=== PATIENT | female | born 1935 | race Caucasian/White ===

== ENCOUNTER → 2017-08-14 12:30 | Outpatient (CLI) | payer MEDICARE, OTHER, SELFPAY ==
--- NOTE | 2017-08-14 | NVE_ITS ---
Venous Exam IMPRESSIONS 1. There is no evidence of significant Reflux. 2. No evidence of deep or superficial vein thrombosis involving the right lower extremity History: Right lower extremity pain. Right lower extremity pain. Edema of the right leg. Edema of the right leg. Risk factors: Hypertension. Obese. Patient denies trauma. Foot and lower leg began hurting 10 days ago. Right lower extremity venous duplex evaluation. Doppler flow study including spectral analysis, color and dong scale imaging. Location: Vascular laboratory. Patient status: Outpatient. CRITICAL FINDINGS - Reported to: Lauren Cevallos - Read back and verified. - 08/14/17 - 13:00 - RLE negative for DVT or SVT Tables: Venous flow and imaging: + +-------+ + Location Overall Flow properties + +-------+ + Right common femoral Patent Normal phasicity; spontaneous; normal augmentation; compressible + +-------+ + Right saphenofemoral junction Patent Compressible + +-------+ + Right profunda femoral Patent Compressible + +-------+ + Right femoral Patent Normal phasicity; spontaneous; normal augmentation; compressible + +-------+ + Right greater saphenous Patent Normal phasicity; spontaneous; normal augmentation; compressible + +-------+ + Right popliteal Patent Normal phasicity; spontaneous; normal augmentation; compressible + +-------+ + Right posterior tibial Patent Compressible + +-------+ + Right peroneal Patent Compressible + +-------+ + Right gastrocnemius Patent Compressible + +-------+ + Right soleal Patent Compressible + +-------+ + (Report phil ) Electronically signed by: Vitor Jorgensen [id number]
== END ==
PROVIDERS: PCP Emergency Medicine; Visit Provider Nurse Practitioner Family
DX: M79.661 Pain in right lower leg (principal); M79.89 Other specified soft tissue disorders
CPT/HCPCS: 93971

== ENCOUNTER → 2017-10-01 12:04 | Outpatient (CLI) | payer MEDICARE, OTHER, SELFPAY ==
--- NOTE | 2017-10-01 12:07 | XR_ITS ---
EXAM: XR lumbar spine 2-3V HISTORY: Back pain ITS.REASON: pain ORDERING PHYSICIAN: India Lord PATIENT AGE: 82 years COMPARISON: None FINDINGS: There is been prior posterior fusion at L4 and L5 with interpedicular screws and disc spacer device. There is 5 mm anterolisthesis of L4. Multilevel degenerative disc disease is present from T11 to S1 with endplate osteophytes and facet hypertrophic change . There is mild lumbar scoliosis convex left with bridging osteophytes on the right at L2-L3 and L4. Hypertrophic changes are present from the prior fusion. Facet hypertrophic changes are also present at L2 and L3. There may very well be canal stenosis at L2 and L3 as well as L5-S1 No fracture or dislocation. No lytic or blastic change. Incidental vascular calcification noted. IMPRESSION: Multilevel lumbar spondylosis with degenerative disc disease, postsurgical change, then prominent facet arthropathy. Possible canal stenosis which may be better evaluated for with MRI
--- NOTE | 2017-10-01 12:07 | XR_ITS ---
XR wrist LT min 3V HISTORY pain ITS.REASON: pain ORDERING PHYSICIAN: India Lord PATIENT AGE: 82 years Comparison: None FINDINGS: There are severe osteoarthritic changes of the first metacarpal carpal junction. There is mild lateral subluxation of the first metacarpal. Osteoarthritic changes are also present at the scaphotrapezium joint. Cystic changes are present at the base of the scaphoid 7 mm. Mild degenerative changes distal radial ulnar joint. No fracture or dislocation. IMPRESSION: Severe osteoarthritis
== END ==
PROVIDERS: PCP Nurse Practitioner Family; Visit Provider Nurse Practitioner Family
DX: M25.532 Pain in left wrist (principal); M54.9 Dorsalgia, unspecified
CPT/HCPCS: 72100; 73110

== ENCOUNTER 2017-11-14 15:00 | Outpatient (RCR) | payer MEDICARE, OTHER, SELFPAY ==
--- NOTE | 2017-10-15 13:30 | HMH.PTOPEV ---
PT Outpatient Evaluation Rehab PT Outpatient Evaluation Start: 10/15/17 13:17 Freq: Status: Active Protocol: Document 10/15/17 13:17 CRYSTAL (Rec: 10/15/17 13:30 CRYSTAL [id number]) Electronically Signed By Geoff Swann, PT 10/15/17 13:17 Outpatient Therapy Subjective History Subjective History Pt reports acute onset LBP beginning on 09/14/17 after long day of moving/lifting activity. Pt reports R > L sided LBP with intermittent R LE s/s from R glut/hip to lat thigh. Pt reports some R LE weakness as well. PMH: B TKA's , lumbar spine discectomy w/ fusion, OA Chief Complaint Pain Stiff Weakness Symptom Type Ache Throb Sharp Dull Symptoms Relieved By OTC Meds Symptoms Aggravated By Sitting Standing Walking Lifting Prior Functional Limitations None Current Functional Limitations Lifting Housework Standing Sitting Walking Symptom Description Constant but Variable Level of pain today (0-10) 5 Pain scale - at its best (0-10) 5 Pain scale - at its worst (0-10) 8 Lumbopelvic Eval Posture Thoracic Spine Posture Standing Position Neutral Lumbar Spine Posture Standing Position Flattened Assistive device Assistive Devices None / NA Gait Observation General Gait Pattern Observation Antalgic Gait Wide Based Gait Shuffling Step Palapation tenderness right lumbar spinal tenderness Yes: 3/4 paraspinal tenderness Yes: 3/4 buttock tenderness Yes: 3/4 left lumbar spinal tenderness Yes: 1/4 paraspinal tenderness Yes: 1/4 buttock tenderness Yes: 1/4 Lumbar/Sacral Palpation Findings Tenderness Accessory Movement L3 bilateral L4 bilateral L5 bilateral Range of Motion Lumbar Spine Active Flexion Range of 0-100 Motion (degrees) Lumbar Spine Active Extension Range of 0-20 Motion (degrees) Left Lumbar Spine Lateral Flexion Active 0-20 Range of Motion (degrees) Right Alexandra
== END 2017-11-14 15:01 | disposition home or self-care (01) ==
LOC: PT 15:00
PROVIDERS: PCP Nurse Practitioner Family; Visit Provider Nurse Practitioner Family
DX: M54.9 Dorsalgia, unspecified (principal); M25.532 Pain in left wrist
CPT/HCPCS: 97010; 97014; 97035; 97110; 97163; G0283

== ENCOUNTER → 2018-10-22 09:02 | Outpatient (CLI) | payer MEDICARE, OTHER, SELFPAY ==
--- NOTE | 2018-10-22 09:06 | MM_ITS ---
MM Dig screening mamm BI w/CAD CAD Screening COMPARISON: Digital mammograms with CAD 10/25/2016 and 11/22/2014 INDICATION: There is a history of breast cancer in patient's sister diagnosed at age 50. There have been previous biopsies on each breast for benign disease. TECHNIQUE: Standard CC and MLO images were obtained. R2 CAD reviewed. FINDINGS: Prominent heterogenic fibro glandular densities are seen in both breasts. However there has been interval change in the left breast with a suspicious spiculated lesion deep within the breast central location. There is a benign-appearing calcification or possibly a biopsy clip at the periphery of this lesion. However this possible biopsy clip was not seen on the previous mammogram 10/25/2016. Recommend patient return for spot compression magnification views and ultrasound for additional evaluation. There are few benign-appearing microcalcifications in each breast and there is arterial calcification in each breast. IMPRESSION: Dense parenchyma pattern with development of new suspicious asymmetric density deep within the central portion left breast worrisome for carcinoma. However the findings could possibly be secondary to post biopsy scarring if there has been interval biopsy performed at an outside facility since the previous mammogram at [facility]. BI-RADS Category: 0 Need Additional Imaging Evaluation RECOMMENDED FOLLOW-UP: IMM - IMMEDIATE FOLLOW-UP RECOMMENDED (A letter has been sent to the patient regarding results of the study.)
== END ==
PROVIDERS: PCP Nurse Practitioner Family; Visit Provider Nurse Practitioner Family
DX: Z12.31 Encounter for screening mammogram for malignant neoplasm of breast (principal)
CPT/HCPCS: 77067

== ENCOUNTER → 2018-11-12 13:15 | Outpatient (CLI) | payer MEDICARE, OTHER, SELFPAY ==
--- NOTE | 2018-11-12 13:17 | US_ITS ---
MM Dig mamm DX unilat LT CAD, US breast LT complete INDICATION: Follow-up abnormal mammogram ORDERING PHYSICIAN: Lauren Cevallos APRN PATIENT AGE: 83 years COMPARISON: 10/22/2018, 10/25/2016 TECHNIQUE: Problem-solving views of the left breast along with left breast ultrasound FINDINGS: Spot compression views show persistent area of increased density which is ill-defined in the central aspect of the left breast superiorly at the 12:00 region. There is a coarse calcification at this region and smaller microcalcifications noted at this area. This area measures approximately 2 cm with some central architectural distortion. Left breast ultrasound: At 11:00 there is a hypoechoic mass measuring 1.7 x 0.8 cm with irregular stellate appearing margins suspicious for neoplasm. Biopsy is suggested IMPRESSION: Suspicious 2 cm mass at the level o'clock region of the left breast. Ultrasound-guided mammotome biopsy recommended. BI-RADS Category: 4 Suspicious Abnormality-Biopsy Considered RECOMMENDED FOLLOW-UP: BIO - BIOPSY RECOMMENDED (A letter has been sent to the patient regarding results of the study.)
== END ==
PROVIDERS: PCP Nurse Practitioner Family; Visit Provider Nurse Practitioner Family
DX: R92.8 Other abnormal and inconclusive findings on diagnostic imaging of breast (principal)
CPT/HCPCS: 76641; 77065

== ENCOUNTER → 2018-12-04 09:21 | Outpatient (CLI) | payer MEDICARE, OTHER, SELFPAY ==
--- NOTE | 2018-12-04 | MM_ITS ---
US mammotome bx LT, MM clip placement LT, MM surgical specimen LT INDICATION: Left breast nodule/mass, abnormal mammogram, palpable abnormality ORDERING PHYSICIAN: Lauren Cevallos APRN PATIENT AGE: 83 years COMPARISON: 11/12/2018 TECHNIQUE: Following obtaining informed consent and timeout procedure under aseptic conditions and local anesthesia with 1% buffered lidocaine and deeper anesthesia with lidocaine mixed with epinephrine suspicious nodule within the 11:00 region of the left breast was localized with sonographic guidance. Mammotomy needle was inserted and multiple core biopsies were obtained. Specimen radiograph was obtained showing faint calcifications as expected. Nonferromagnetic clip was then placed. The patient tolerated the procedure well without evidence of immediate complications. Postbiopsy mammogram: Postbiopsy changes are present in the upper inner aspect of left breast. A clip is present in this region adjacent to a dense rodlike calcification. 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 No immediate complication. Recommendations: Surgical consult
--- NOTE | 2018-12-04 | MM_ITS ---
US mammotome bx LT, MM clip placement LT, MM surgical specimen LT INDICATION: Left breast nodule/mass, abnormal mammogram, palpable abnormality ORDERING PHYSICIAN: Lauren Cevallos APRN PATIENT AGE: 83 years COMPARISON: 11/12/2018 TECHNIQUE: Following obtaining informed consent and timeout procedure under aseptic conditions and local anesthesia with 1% buffered lidocaine and deeper anesthesia with lidocaine mixed with epinephrine suspicious nodule within the 11:00 region of the left breast was localized with sonographic guidance. Mammotomy needle was inserted and multiple core biopsies were obtained. Specimen radiograph was obtained showing faint calcifications as expected. Nonferromagnetic clip was then placed. The patient tolerated the procedure well without evidence of immediate complications. Postbiopsy mammogram: Postbiopsy changes are present in the upper inner aspect of left breast. A clip is present in this region adjacent to a dense rodlike calcification. Pathology: Invasive ductal carcinoma, ER, [place], and HER-2 positive IMPRESSION: Successful sonographic guided mammotome biopsy of the left breast demonstrated invasive ductal carcinoma. No immediate complication. Recommendations: Surgical consult
--- NOTE | 2018-12-04 09:50 | US_ITS ---
US mammotome bx LT, MM clip placement LT, MM surgical specimen LT INDICATION: Left breast nodule/mass, abnormal mammogram, palpable abnormality ORDERING PHYSICIAN: Lauren Cevallos APRN PATIENT AGE: 83 years COMPARISON: 11/12/2018 TECHNIQUE: Following obtaining informed consent and timeout procedure under aseptic conditions and local anesthesia with 1% buffered lidocaine and deeper anesthesia with lidocaine mixed with epinephrine suspicious nodule within the 11:00 region of the left breast was localized with sonographic guidance. Mammotomy needle was inserted and multiple core biopsies were obtained. Specimen radiograph was obtained showing faint calcifications as expected. Nonferromagnetic clip was then placed. The patient tolerated the procedure well without evidence of immediate complications. Postbiopsy mammogram: Postbiopsy changes are present in the upper inner aspect of left breast. A clip is present in this region adjacent to a dense rodlike calcification. Pathology: Invasive ductal carcinoma, ER, [place], and HER-2 positive IMPRESSION: Successful sonographic guided mammotome biopsy of the left breast demonstrated invasive ductal carcinoma. No immediate complication. Recommendations: Surgical consult
== END ==
PROVIDERS: PCP Nurse Practitioner Family; Visit Provider Nurse Practitioner Family
DX: C50.212 Malignant neoplasm of upper-inner quadrant of left female breast (principal); R92.8 Other abnormal and inconclusive findings on diagnostic imaging of breast; Z17.0 Estrogen receptor positive status [ER+]
CPT/HCPCS: 19083; 76098; 76942; 77065; 88305; 88360; C2618

== ENCOUNTER 2018-12-24 14:00 | Outpatient (RCR) | payer MEDICARE, OTHER, SELFPAY ==
--- NOTE | 2018-12-18 08:53 | HMH.PTOPWND ---
Rehab Outpt Wound Evaluation Rehab OP Wound Evaluation Start: 12/18/18 07:57 Freq: Status: Active Protocol: Document 12/18/18 08:37 INGE (Rec: 12/18/18 08:53 PHORIBRAHIMA [id number]) Electronically Signed By Rad Mora, PT 12/18/18 08:37 Subjective/History History History Pt is 83 yowf who presents for initial Lymphedema evaluation due to recent diagnosis of left breast cancer. She underwent US guided biopsy of the left breast mass discovered via mammogram on and it was found to be malignant. She was apparently informed of the reults at her last appointment with the surgeon on 12/15/18 and refered to our clinic at that time. She reports no c/o pain, numbness, tingling, tenderness to palpation, or edema at this time. She has PMH of B TKA, ARSH, bladder surgery, lumbar surgery. She also reports a prior episode of non-malignant breast biopsy that was performed > 30 yrs ago. She reports she has an appointment with the oncologist on 12/25/18. Subjective Subjective No c/o this date. She does reports she fell on her left side ~ 1 mo ago without any injuries that she knows of. Lymphedema Eval Classification of Lymphedema Secondary Lymphedema Yes Stemmer's sign Stemmer's Sign no Stage of Lymphedema Lymphedema stages Stage 0 (subjective c/o heaviness and aching) Skin Changes Dry Skin Yes Other Changes Yes Pain Scale Pain Scale (0-10) 0 Affected Extremities Areas Affected by Lymphedema/Edema Left Upper Extremity,Left Breast,Left Axilla Manual Lymphatic Drainage Treatment Area MLD Treatment Area Left Upper Extremity,Left Breast,Left Axilla Wound Problems/Impairments Impairments Problems/Impairmments Palpation Tenderness,Impaired Recreational Activities, Increased Edema,Lymphedema Present,Subjective C/O Pain,
== END 2018-12-24 14:05 | disposition home or self-care (01) ==
LOC: PT 14:00
PROVIDERS: PCP Nurse Practitioner Family; Visit Provider Surgery
DX: C50.912 Malignant neoplasm of unspecified site of left female breast (principal)
CPT/HCPCS: 97162

== ENCOUNTER → 2018-12-26 12:20 | Outpatient (CLI) | payer MEDICARE, OTHER, SELFPAY ==
--- NOTE | 2018-12-26 12:32 | CT_ITS ---
PROCEDURE: CT CHEST WO CON CLINICAL INDICATION: BREAST CANCER BREAST CANCER EVALUATION, EVALUATE FOR METASTATIC DISEASE COMPARISON: DIG MAMM-SCREEN JAMAAL from 10/22/2018 DIG MAMM-DX UNI-LT from 11/12/2018 MM clip placement LT from 12/04/2018 DIG MAMM-SCREEN JAMAAL from 12/04/2018 TECHNIQUE: Axial images obtained with sagittal and coronal reformats. All CT scans at the facility use one or more dose reduction, viz: automated exposure control, ma/kV adjustment per patient size (including targeted exams where dose is matched to indication, i.e. head), or iterative reconstruction technique. FINDINGS: THERE ARE CORONARY ARTERY CALCIFICATIONS PRESENT. NORMAL HEART SIZE. MINIMAL PERICARDIAL THICKENING. MODERATE-SIZED HIATAL HERNIA. NO MEDIASTINAL OR HILAR MASS OR ADENOPATHY. SCATTERED AREAS OF PARENCHYMAL SCARRING ARE NOTED. THERE ARE A FEW LESS THAN 5 MM NONSPECIFIC PARENCHYMAL OPACITIES WHICH MAY BE DUE TO AREAS SCARRING. THESE ARE LOCATED IN THE RIGHT UPPER LOBE ANTERIORLY IMAGE NUMBER 24, LEFT UPPER LOBE POSTERIOR LATERALLY IMAGE NUMBER 45, LEFT UPPER LOBE POSTERIOR LATERALLY IMAGE NUMBER 25. NO SUSPICIOUS PULMONARY NODULES ARE EVIDENT. NO EFFUSIONS OR INFILTRATES. LOBULATED SOFT TISSUE MASS IS PRESENT IN THE LEFT BREAST SUPERIORLY CONSISTENT WITH PATIENT'S KNOWN NEOPLASM. THIS MEASURES APPROXIMATELY 2.4 CM. A CLIP IS PRESENT IN THIS REGION. NO ACUTE BONY FINDINGS ARE EVIDENT. UPPER ABDOMINAL IMAGES SHOW A MODERATE-SIZED HIATAL HERNIA. THE ADRENAL GLANDS ARE UNREMARKABLE. IMPRESSION: NO CONVINCING EVIDENCE OF PULMONARY METASTASIS. THERE ARE FEW NONSPECIFIC SMALL PULMONARY NODULAR DENSITIES. RECOMMEND SIX-MONTH FOLLOW-UP TO CONFIRM STABILITY Dictated by: Vitor Jorgensen MD 12/26/2018 16:48 Signed by: <Electronically signed by Vitor Jorgensen MD in [place]> 12/26/2018 16:48
[2018-12-26 12:40] LABS: Blood Urea Nitrogen 21 mg/dL (7-18); Creatinine,Serum 0.94 mg/dL (0.55-1.02); Estimated Glomerular Filt Rate 57 ml/min (>60); GFR (African American) 69 ML/MIN (>60)
== END ==
PROVIDERS: PCP Nurse Practitioner Family; Visit Provider Internal Medicine Medical Oncology
DX: C50.212 Malignant neoplasm of upper-inner quadrant of left female breast (principal)
CPT/HCPCS: 36415; 71250; 82565; 84520

== ENCOUNTER → 2019-01-28 14:28 | Outpatient (CLI) | payer MEDICARE, OTHER, SELFPAY ==
[2019-01-28 15:15] LABS: Basophils % 0.5 % (0.1-2.0); Eosinophils # 0.2 K/mm3 (0.0-0.4); Eosinophils % 2.8 % (0.1-12.0); Lymphocytes # 2.1 K/mm3 (0.7-4.5); Lymphocytes % 26.4 % (10-50); Mean Corpuscular HGB Conc 29.9 g/dL (31.8-35.4); Mean Corpuscular Hemoglobin 28.7 pg (27.0-31.2); Mean Corpuscular Volume 95.9 fl (81-99); Mean Platelet Volume 7.9 fl (7.4-10.4); Monocytes # 0.7 K/mm3 (0.1-1.0); Monocytes % 8.7 % (1.7-9.3); Neutrophils # 4.9 K/mm3 (1.8-7.8); Neutrophils % 61.6 % (37.0-80.0); Platelet Count 321 K/mm3 (142-424); Red Blood Count 4.17 M/mm3 (4.20-5.40); Red Cell Distribution Width 13.7 % (11.5-17.5); White Blood Count 7.9 K/mm3 (4.8-10.8)
[2019-01-28 15:57] LABS: Anion Gap 12.9 mEq/L (5-15); Blood Urea Nitrogen 19 mg/dL (7-18); Calcium 9.1 mg/dL (8.5-10.1); Carbon Dioxide 27 mmol/L (21.0-32.0); Chloride 98 mmol/L (98-107); Creatinine,Serum 0.86 mg/dL (0.55-1.02); Estimated Glomerular Filt Rate 63 ml/min (>60); GFR (African American) 76 ML/MIN (>60); Glucose 120 mg/dL (74-106); Potassium 3.9 mmoL/L (3.5-5.1); Sodium 134 mmol/L (136-145)
== END ==
PROVIDERS: Visit Provider Surgery
DX: E66.9 Obesity, unspecified (principal); C50.912 Malignant neoplasm of unspecified site of left female breast
CPT/HCPCS: 36415; 80048; 85025

== ENCOUNTER 2019-02-04 08:15 | Observation (INO) ==
--- NOTE | 2019-02-04 08:56 | Progress Note ---
[facility] Anesthesia Checklist - Patient Identification Patient Identification: Arm Band, Verbal (Name & ) - Structural Data Admitted From: Home Planned Operative Procedure/s: mastectomy Consent for Planned Operative Procedure(s) Verified: Yes Verified Documents: History and Physical - NPO Status Verified Time NPO: 00:00 - Additional verifications Patient : No Anesthesia Reactions: No Hx Blood Transfusions: No Blood Transfusion Reaction: No Cephalosporin Allergy: No Previous Colonoscopy: No - Cardiovascular Assessment Heart Sounds: S1 & S2 Pulse Strength: Baseline Pulse Rhythm: Regular Peripheral Edema: No - Airway Assessment C-Spine Mobility Assessed: Yes TMJ Mobility Assessed: Yes Dentition: Partials - Neurological Assessment Level of Consciousness: Awake, Alert, Appropriate Hx Seizures: No Numbness or tingling in extremities: No - Anesthesia Plan Anesthesia Risk discussed: Yes Anesthesia Plan: Verified ASA Class: II Anesthesia Type: General [facility] History I have reviewed the patient's past medical history: Yes Medical History: Reports:: Cancer (breast), Hypertension Denies:: Diabetes Mellitus Type 1, Diabetes Mellitus Type 2, Gastroesophageal Reflux Disease(GERD), Internal Pacemaker, MRSA, Pulmonary Embolism, Seizures, Transient Ischemic Attacks (TIA) *Have you ever received a pneumonia vaccine?: No *Have you received a flu vaccine this season?: No Other Medical History: Reports: Hypothyroidism. Denies: Blood Transfusion Reaction Anesthesia experience/problems:: none Laterality Cases: Bilateral: Arthroscopy Knee Other Surgeries: Yes: Cancer Surgery, Colonoscopy, Hysterectomy-Total, Other. No: Pacemaker Amputation: No Fractures: No - *Social History Educational Level: Completed High School Smoking Status: Never smoker Alcohol Intake: never Substance Use Type: denies use *Occupational Status:: retired Housing: apartment Household Members: none *Travel in the last 8 weeks: None Family Hx:: Heart Attack, Cancer, Thyroid Disorder
--- NOTE | 2019-02-04 12:59 | Operative Note ---
Date of procedure: 02/04/19 Pre-op Diagnosis:: Left breast cancer Post-op Diagnosis:: Same Procedure performed:: Left total mastectomy Surgeon:: Dane Jennings MD DECONTAMINATION TECHNICIAN:: Anselmo Lucio Anesthesia: GETA Estimated blood loss (mL): 50 Clinical Note:: Patient is a pleasant 83-year-old female originally referred by Lauren Cevallos and Dr. Lin for newly diagnosed left breast cancer. I saw her in the office initially on 12/15/18. She states that she had been undergoing routine mammograms and had an abnormality noted in the superior aspect of the left b reast. She had additional views including ultrasound and mammogram. She was found to have a 17 x 8 mm lesion which was suspicious and given a BI-RADS 4 classification. 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 She does have a family history of breast cancer in her sister. She underwent evaluation with oncology. She also has been seen by lymphedema clinic. She underwent sentinel lymph node mapping and biopsies last week. Axillary sentinel lymph node x3 and an additional lymph node were all negative. She underwent wide excision of the palpable mass as a partial mastectomy as well. Her final pathology however it reveals positive margins of the invasive cancer in the anterior, posterior, medial, and inferior margins as well as multiple margins with positive DCIS. This gives the overall size of the tumor actually 8 cm as opposed to the original 1.7 x 0.8 cm noted on traditional breast imaging. She is without sig nificant complaints. She does have some minor discomfort in her left upper extremity. I had a very long discussion with the patient regarding potential reexcision versus proceeding with completion total mastectomy. Patient states that she is unsure if she would be able to undergo travel for external beam radiation. Given the multiple positive margins as well as microscopic size of the lesion as well as the multiple positive margins of DCIS I actually would advocate completion mastectomy. I discussed the nature of both procedures as well as the risks and expected outcome. At this point given her clinical scenario and nature of the primary tumor, plan will be to proceed with completion left total mastectomy. Operative findings:: Large seroma cavity from prior partial mastectomy Operative note:: Patient was taken to the operating room. She was given preoperative intravenous antibiotics. In the operating room she was placed in a supine position. General anesthesia was induced. Her left breast and chest area and left upper extremity were prepped and draped in the standard surgical fashion. Skin was marked with a skin marker for planned elliptical incision to perform total mastectomy and reexcised the prior partial mastectomy seroma cavity intact. Incision was made. Attention was first turned to superior skin flaps. Electrocautery was used to dissect in the subcutaneous plane dissecting free the underlying breast tissue from the overlying superficial subcutaneous tissues. In the upper outer quadrant the plane margin was rather close and for full excision there was minor skin defect created upon raising the skin flap. Dissection was carried down to the clavicle and then down to the pectoralis fascia superiorly. Attention was then turned to inferior skin flap. In similar fashion the underlying breast tissue was dissected free from the overlying superficial subcutaneous tissues. This was carried down to the pectoralis muscle dividing the pectoralis fascia with electrocautery. The breast tissue was then excised from the pectoralis muscle excising the pectoral fascia using electrocautery and the subpectoral fascial plane. Dissection was carried out towards the axilla. There was a large amount of extraneous fatty tissues in the axilla. This was excised along with the breast in the entirety. The mastectomy specimen was then marked with sutures marking long suture at the lateral portion and short suture superiorly. There appeared to be some residual tissue in the inferior skin flap and this was dissected free from the overlying skin using electrocautery and sent as additional reexcised inferior tissue. As previously stated there was a very large amount of extraneous fatty tissue towards the axilla. Additional skin and subcutaneous tissue was excised and sent as a specimen to wall taper helper in closure. The wound was then thoroughly irrigated. Hemostasis was achieved with electrocautery. 2 #10 KIRILL drains were placed placing the more medial KIRILL drain in the inferior portion of the mastectomy bed and more lateral KIRILL drain towards the axilla. Both drains were secured with 2-0 nylon sutures. Mastectomy incision was closed with a running 2-0 Vicryl. Skin was closed with skin lara. Clean dry sterile dressing was applied. Condition: stable Disposition: PACU Specimens:: Left mastectomy Additional reexcised inferior tissue Additional lateral tissue Complications:: None immediately apparent
--- NOTE | 2019-02-04 13:04 | Progress Note ---
[facility] Anesthesia Record Part II Discharge Time: 13:30 Destination: [facility] PACU nurse assessment reviewed?: Yes Patient Condition:: Good Anesthesia Complications:: None Swallowing reflex intact?: Yes Cyanosis?: No
--- NOTE | 2019-02-04 13:04 | Progress Note ---
[facility] Anesthesia Record Part I Intake, IV Amount: 1,500 Estimated blood loss (mL): 150 Urine output (mL): 0 Blood Pressure: 118/76 SaO2: 95 Pulse Rate: 82 Respiratory Rate: 12 Temperature: 97.6 F Patient is:: Awake, Stable Stable to PACU at:: 13:00
--- NOTE | 2019-02-04 16:48 | Operative Note ---
Date of procedure: 02/04/19 Pre-op Diagnosis:: Postoperative bleeding Post-op Diagnosis:: Same Procedure performed:: Reopening of recent mastectomy incision with control of postoperative bleeding Surgeon:: Dane Jennings MD TELEPHONE ADVICE NURSE:: Jori Hollis Anesthesia: GUSTAVO Estimated blood loss (mL): 100 Clinical Note:: Patient is an 83-year-old white female who has left breast cancer and underwent left total mastectomy earlier this morning. She was doing well postoperatively and strongly desired going home and being managed as an outpatient. Arrangements are being made for discharge and follow-up. She had developed some bleeding from the incision with some blood in the Dhiraj-Muhammad drains. She was evaluated at the bedside and it was felt that the best plan of action would be reopening of the wound for evacuation of hematoma and for hemostasis. Operative findings:: Patient had a moderate hematoma within the mastectomy bed. There was evidence of some minor oozing from the medial pectoral muscle and a vessel which had minor active bleeding in this region. Operative note:: Consent was obtained and patient was taken emergently to the operating room. She was given additional dose of preoperative antibiotics. In the operating room she was placed in a supine position. General anesthesia was induced. Her previously placed Dhiraj-Muhammad drains were removed. The surgical site was prepped and draped in the standard surgical fashion. Approximately half of the lara were removed medially and the underlying Vicryl suture was sharply divided. There was some hematoma present which was evacuated from the mastectomy bed. There was noted to be some minor oozing from pectoral muscle medially. There was a vessel at this location which showed some active bleeding. Several 2-0 Vicryl [id number] sutures were placed for good hemostasis. Remainder of hematoma was evacuated. Wound was then thoroughly irrigated and aspirated until clear. Thorough exploration was carried out and there was no evidence of any additional bleeding. There appeared to be good hemostasis. A couple of KIRILL drains were placed once again through the previous incisions for the KIRILL drains were. Medial drain was placed inferiorly in the mastectomy bed and the lateral drain was placed towards the axilla. Drains were secured at the skin with 2-0 nylon horizontal mattress suture. Subdermal tissues were closed in the mastectomy incision with a running 2-0 Vicryl suture. Skin was closed with skin lara. Clean dry sterile dressing was applied. Condition: stable Disposition: PACU Complications:: None immediately apparent
--- NOTE | 2019-02-04 17:01 | Progress Note ---
[facility] Anesthesia Record Part II Discharge Time: 17:25 Destination: 2nd floor PACU nurse assessment reviewed?: Yes Patient Condition:: Good Anesthesia Complications:: None Swallowing reflex intact?: Yes Cyanosis?: No
--- NOTE | 2019-02-04 17:01 | Progress Note ---
[facility] Anesthesia Record Part I Intake, IV Amount: 1,000 Estimated blood loss (mL): 100 Urine output (mL): 0 Blood Pressure: 154/71 SaO2: 95 Pulse Rate: 90 Respiratory Rate: 16 Temperature: 97.8 F Patient is:: Drowsy, Stable Stable to PACU at:: 16:55
[2019-02-05 07:06] LABS: Basophils % 0.1 % (0.1-2.0); Eosinophils % 0.1 % (0.1-12.0); Hematocrit 34.3 % (37.0-47.0); Hemoglobin 10.4 g/dL (12.2-16.2); Lymphocytes # 0.9 K/mm3 (0.7-4.5); Lymphocytes % 12.7 % (10-50); Mean Corpuscular HGB Conc 30.4 g/dL (31.8-35.4); Mean Corpuscular Volume 95.9 fl (81-99); Mean Platelet Volume 8.4 fl (7.4-10.4); Monocytes # 0.7 K/mm3 (0.1-1.0); Monocytes % 10.4 % (1.7-9.3); Neutrophils # 5.4 K/mm3 (1.8-7.8); Neutrophils % 76.7 % (37.0-80.0); Platelet Count 303 K/mm3 (142-424); Red Blood Count 3.58 M/mm3 (4.20-5.40); Red Cell Distribution Width 13.6 % (11.5-17.5)
--- NOTE | 2019-02-05 07:43 | Pharmacy Consult Notes ---
[facility] Pharmacy VTE Monitoring - Patient Demographics Admission date: 02/04/19 Report Date: 02/05/19 Time: 07:43 Allergies/Adverse Reactions: Patient Allergies iodine Allergy (Verified 02/04/19 08:27) Height: 1.63 m Weight: 108.125 kg - VTE Risk Labs: VTE Related Lab Results Hgb 10.4 g/dL (12.2-16.2) L 02/05/19 06:08 Hct 34.3 % (37.0-47.0) L 02/05/19 06:08 Plt Count 303 K/mm3 (142-424) 02/05/19 06:08 - Prophylaxis VTE Prophylaxis Ordered?: Yes Types of VTE Prophylaxis: TEDS Knee High Location of Applied Device: Bilateral Lower Extremeties - VTE Diagnosis Confirmed Treatment or plan recommended: Continue Current Treatment
--- NOTE | 2019-02-05 08:15 | Progress Note ---
Subjective Narrative: No complaints. States she is "ready to go home". Exam Vital signs and Labs for Last 24 Hours: Temp Pulse Resp BP Pulse Ox 97.7 F 69 18 121/41 L 94 L 02/05/19 04:00 02/05/19 04:00 02/05/19 04:00 02/05/19 04:00 02/05/19 04:00 Laboratory Results - last 24 hr 02/05/19 06:08: WBC 7.0, RBC 3.58 L, Hgb 10.4 L, Hct 34.3 L, MCV 95.9, MCH 29.2, MCHC 30.4 L, RDW 13.6, Plt Count 303, MPV 8.4, Neut % (Auto) 76.7, Lymph % (Auto) 12.7, [place] % (Auto) 10.4 H, Eos % (Auto) 0.1, Baso % (Auto) 0.1, Neut # (Auto) 5.4, Lymph # (Auto) 0.9, [place] # (Auto) 0.7, Eos # (Auto) 0.0, Baso # (Auto) 0.0 I & O for Last 24 hours: Intake & Output 02/02/19 02/03/19 02/04/19 02/05/19 11:59 11:59 11:59 11:59 Intake Total 3596 / 3596 Output Total 435 / 435 Balance 3161 / 3161 Weight 226 lb 238 lb 6 oz - Routine Chest/Breast/Axilla Exam Comments: Dressings clean. No hematoma. Acceptable KIRILL output. Progress Note: A&P Assessment and Plan for All Diagnoses:: Discharge home.
--- NOTE | 2019-02-05 08:21 | Discharge Summary ---
General - General Admission date:: 02/04/19 Discharge date: 02/05/19 HPI HPI: Patient is a pleasant 83-year-old female originally referred by Lauren Cevallos and Dr. Lin for left breast cancer. I saw her in the office initially on 12/15/18 as a consultation. She states that she had been undergoing routine mammograms and had an abnormality noted in the superior aspect of the left breast. She had additional views including ultrasound and mammogram. She was found to have a 17 x 8 mm lesion which was suspicious and given a BI-RADS 4 classification. 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 She does have a family history of breast cancer in her sister. She underwent evaluation with oncology. She also has been seen by lymphedema clinic. She underwent sentinel lymph node mapping and biopsies. Axillary sentinel lymph node x3 and an additional lymph node were all negative. She underwent wide excision of the palpable mass as a partial mastectomy as well. Her final pathology however it revealed positive margins of the invasive cancer in the anterior, posterior, medial, and inferior margins as well as multiple margins with positive DCIS. This gives the overall size of the tumor actually at least 8 cm as opposed to the original 1.7 x 0.8 cm noted on traditional breast imaging. I had a very long discussion with the patient regarding potential reexcision versus proceeding with completion total mastectomy. Patient stated that she was unsure if she would be able to undergo travel for external beam radiation. Given the multiple positive margins, as well as microscopic size of the lesion, as well as the multiple positive margins of DCIS, I actually advocated completion mastectomy. I discussed the nature of both procedures as well as the risks and expected outcome. Patient elected to proceed with completion total mastectomy. Hospital Course Hospital Course: Patient was taken to the operating room on 02/04/2019 at which time she underwent completion total left mastectomy. She had 2 KIRILL drains placed at the time. She is doing extremely well postoperatively initially and strongly desired being discharged. Arrangements were made for this. When she was being prepared for discharge she had some increased output from the KIRILL drains and some minor oozing from the incision. She was reevaluated prior to discharge and appeared to have somewhat of a hematoma within the mastectomy bed. Despite stripping the drains she continued to have some ongoing oozing. It was felt that the best plan of action would be reopening of the mastectomy incision. She was taken back to the operating room at which time she underwent reexploration of the mastectomy bed with evacuation of approximately 100 cc of hematoma. There was a single small muscle bleeding vessel medially on the pectoralis muscle. This was ligated with Vicryl. Wound was thoroughly inspected and there was good hemostasis. The hematoma was fully evacuated and she had 2 new KIRILL drains placed. Please see operative dictation for complete details. She was admitted overnight for observation for any additional bleeding, continuation of perioperative antibiotics, and follow-up CBC the next morning. Patient did well overnight. She had expected normal output from her KIRILL drains. Her dressing was dry and intact and there is no evidence of any hematoma. She had acceptable output from her KIRILL drains. Hemoglobin was within expected range. Arrangements made for discharge home at this time. Objective Vital signs: Temp Pulse Resp BP Pulse Ox 97.7 F 69 18 121/41 L 94 L 02/05/19 04:00 02/05/19 04:00 02/05/19 04:00 02/05/19 04:00 02/05/19 04:00 - Routine Chest/Breast/Axilla Exam Comments: Dressings are dry. KIRILL drain with some serosanguineous output. No evidence of any hematoma. - Detailed Eye Exam Eyelids: Left normal inspection Results Labs on day of discharge: Labs from last 24 hours 02/05/19 06:08 WBC 7.0 RBC 3.58 L Hgb 10.4 L Hct 34.3 L MCV 95.9 MCH 29.2 MCHC 30.4 L RDW 13.6 Plt Count 303 MPV 8.4 Neut % (Auto) 76.7 Lymph % (Auto) 12.7 [place] % (Auto) 10.4 H Eos % (Auto) 0.1 Baso % (Auto) 0.1 Neut # (Auto) 5.4 Lymph # (Auto) 0.9 [place] # (Auto) 0.7 Eos # (Auto) 0.0 Baso # (Auto) 0.0 Discharge Plan - Patient Discharge Instructions ACTIVITY: No heavy lifting DIET: continue same diet Additional Instructions: Drain care. Instruct on how to empty and strip drains, record output. - Follow up Plan Follow up with: Dane Jennings MD [Staff Physician] - 02/09/19 Disposition: Home, Self-Senior Living Medications: Home Medications Medication Instructions Recorded Confirmed Type Enalapril/Hydrochlorothiazide 1 tab PO DAILY 01/13/19 02/05/19 History [Vaseretic 10-25 mg Tablet] Levothyroxine Sodium [Synthroid 50 mcg PO DAILY 01/13/19 02/05/19 History 50mcg (0.05mg) tab] Prescriptions/Medication Reconciliation: Continued Enalapril/Hydrochlorothiazide [Vaseretic 10-25 mg Tablet] 1 tab PO DAILY Levothyroxine Sodium [Synthroid 50mcg (0.05mg) tab] 50 mcg PO DAILY - Problem Reconciliation Problems Reviewed?: Yes
== END 2019-02-05 10:42 | disposition home or self-care (01) ==
LOC: OR 08:15 → 2ND 08:15
PROVIDERS: ADMIT Surgery; ATTEND Surgery
CPT/HCPCS: 36415; 85025; 88307; 90686; 96374; G0008; G0378; J2405

== ENCOUNTER 2019-05-13 13:00 | Outpatient (RCR) | payer MEDICARE, OTHER, SELFPAY ==
--- NOTE | 2019-03-25 09:14 | HMH.PTOPWND ---
Rehab Outpt Wound Evaluation Rehab OP Wound Evaluation Start: 03/25/19 08:51 Freq: Status: Active Protocol: Document 03/25/19 09:06 INGE (Rec: 03/25/19 09:14 [place] [id number]) Electronically Signed By Rad Mora, PT 03/25/19 09:06 Subjective/History History History Pt is 83 yowf who presents with mild edema S/P left breast lumpectomy on 01/23/19 and then left mastectomy on . Her mastectomy was complicated by hematoma and was re-opened the same day with good control of bleeding acheived and no further problems noted. She currently reports feeling much better overall with no pain and only minor tenderness to palpation in the left axiallary region. She was previously seen in our clinic and pre-surgery measurements were taken to allow comparison after surgery . She has PMH of HTN. Lymphedema Eval Classification of Lymphedema Secondary Lymphedema Yes Post-Surgical Lymphedema Yes Stemmer's sign Stemmer's Sign no Stage of Lymphedema Lymphedema stages Stage 0 (subjective c/o heaviness and aching) Skin Changes Dry Skin Yes Pain Scale Pain Scale (0-10) 0 Radiation Therapy Has received radiation therapy no Chemo Therapy Has received chemo therapy no Affected Extremities Areas Affected by Lymphedema/Edema Left Upper Extremity,Left Breast,Left Axilla Manual Lymphatic Drainage Treatment Area MLD Treatment Area Left Upper Extremity,Left Breast,Left Axilla Wound Problems/Impairments Impairments Problems/Impairmments Palpation Tenderness,Impaired Strength,Impaired Recreational Activities,Increased Edema, Lymphedema Present,Subjective C/O Pain,Impaired Self Care/ Self Management Prognosis Rehab Potential Good Clinical Impression Consistent with Diagnosis Yes Short Term Goals Number of Weeks 4 Decreased Palpation Tenderness Yes: to min Decrease Edema Yes Patient to Understand Lymphedema Yes Treatment and Exercises Decrease Girth Measurments by (c
== END 2019-05-13 13:05 | disposition home or self-care (01) ==
LOC: PT 13:00
PROVIDERS: Visit Provider Internal Medicine Medical Oncology
DX: I89.0 Lymphedema, not elsewhere classified (principal); C50.919 Malignant neoplasm of unspecified site of unspecified female breast
CPT/HCPCS: 97140; 97162

== ENCOUNTER → 2019-06-02 14:07 | Outpatient (CLI) | payer MEDICARE, OTHER, SELFPAY ==
[2019-06-02 14:38] LABS: Basophils % 0.5 % (0.1-2.0); Eosinophils # 0.2 K/mm3 (0.0-0.4); Hematocrit 40.4 % (37.0-47.0); Hemoglobin 12.7 g/dL (12.2-16.2); Lymphocytes % 27.1 % (10-50); Mean Corpuscular HGB Conc 31.5 g/dL (31.8-35.4); Mean Corpuscular Volume 92.1 fl (81-99); Mean Platelet Volume 8.1 fl (7.4-10.4); Monocytes # 0.5 K/mm3 (0.1-1.0); Monocytes % 6.4 % (1.7-9.3); Neutrophils # 4.7 K/mm3 (1.8-7.8); Platelet Count 315 K/mm3 (142-424); Red Blood Count 4.38 M/mm3 (4.20-5.40); Red Cell Distribution Width 13.2 % (11.5-17.5); White Blood Count 7.5 K/mm3 (4.8-10.8)
[2019-06-02 16:20] LABS: Alanine Aminotransferase 12 U/L (12-78); Albumin Level 3.3 gm/dL (3.4-5.0); Albumin/Globulin Ratio 0.9 (1.1-1.8); Alkaline Phosphatase 111 U/L (46-116); Anion Gap 15.2 mEq/L (5-15); Aspartate Amino Transferase 16 U/L (15-37); Bilirubin,Total 0.3 mg/dL (0.2-1.0); Blood Urea Nitrogen 26 mg/dL (7-18); Calcium 9.2 mg/dL (8.5-10.1); Carbon Dioxide 28 mmol/L (21.0-32.0); Chloride 100 mmol/L (98-107); Creatinine,Serum 1.05 mg/dL (0.55-1.02); Estimated Glomerular Filt Rate 50 ml/min (>60); GFR (African American) 61 ML/MIN (>60); Globulin 3.7 gm/dl (1.3-3.2); Glucose 138 mg/dL (74-106); Potassium 4.2 mmoL/L (3.5-5.1); Sodium 139 mmol/L (136-145)
== END ==
PROVIDERS: PCP Nurse Practitioner Family; Visit Provider Internal Medicine Medical Oncology
DX: C50.212 Malignant neoplasm of upper-inner quadrant of left female breast (principal)
CPT/HCPCS: 36415; 80053; 85025

== ENCOUNTER → 2019-09-29 10:59 | Outpatient (CLI) | payer MEDICARE, OTHER, SELFPAY ==
[2019-09-29 11:46] LABS: Basophils # 0.1 K/mm3 (0-0.2); Basophils % 1.7 % (0.1-2.0); Eosinophils # 0.1 K/mm3 (0.0-0.4); Eosinophils % 1.9 % (0.1-12.0); Hematocrit 39.9 % (37.0-47.0); Hemoglobin 13.1 g/dL (12.2-16.2); Mean Corpuscular HGB Conc 32.9 g/dL (31.8-35.4); Mean Corpuscular Hemoglobin 30.1 pg (27.0-31.2); Mean Corpuscular Volume 91.6 fl (81-99); Mean Platelet Volume 8.4 fl (7.4-10.4); Monocytes # 0.5 K/mm3 (0.1-1.0); Neutrophils # 4.6 K/mm3 (1.8-7.8); Neutrophils % 62.4 % (37.0-80.0); Platelet Count 292 K/mm3 (142-424); Red Blood Count 4.36 M/mm3 (4.20-5.40); Red Cell Distribution Width 13.9 % (11.5-17.5); White Blood Count 7.3 K/mm3 (4.8-10.8)
[2019-09-29 12:08] LABS: Alanine Aminotransferase 11 U/L (12-78); Albumin Level 4.3 g/dl (3.5-5.0); Albumin/Globulin Ratio 1.2 (1.1-1.8); Alkaline Phosphatase 98 U/L (38-126); Anion Gap 13.4 mEq/L (5-15); Aspartate Amino Transferase 21 U/L (14-36); Bilirubin,Total 0.3 mg/dl (0.2-1.3); Blood Urea Nitrogen 28 mg/dl (7-17); Calcium 10.1 mg/dl (8.4-10.2); Carbon Dioxide 27 mmol/L (22.0-30.0); Chloride 100 mmol/L (98-107); Estimated Glomerular Filt Rate 60 ml/min (>60); GFR (African American) 72 ML/MIN (>60); Globulin 3.5 g/dL (1.3-3.2); Glucose 103 mg/dl (74-100); Potassium 4.4 mmoL/L (3.5-5.1); Sodium 136 mmol/L (136-145); Total Protein,Serum 7.8 g/dl (6.3-8.2)
== END ==
PROVIDERS: Visit Provider Internal Medicine Medical Oncology
DX: C50.912 Malignant neoplasm of unspecified site of left female breast (principal)
CPT/HCPCS: 36415; 80053; 85025

== ENCOUNTER → 2019-10-07 10:30 | Outpatient (CLI) | payer MEDICARE, OTHER, SELFPAY ==
--- NOTE | 2019-10-07 10:30 | US_ITS ---
PROCEDURE: US FNA BREAST CLINICAL INDICATION: SEROMA Postoperative seroma, pain and swelling COMPARISON: 10/07/2019 Ultrasound FINDINGS: Was obtained of the left axilla. There is a well-circumscribed fluid collection in the left axilla measuring 2.8 x 2.3 x 3.6 cm consistent with a seroma. There are few small nodes in the left axilla. Following obtaining informed consent under aseptic conditions and local anesthesia with 1 percent buffered lidocaine, a 21 gauge spinal needle was inserted into the fluid collection with sonographic guidance. Approximately 10 cc of cloudy fluid was aspirated and sent to the lab for evaluation. The collection was nearly completely collapsed. The patient tolerated the procedure well without evidence of immediate complication. The collection was no longer palpable. Cytology: Negative for malignant cells IMPRESSION: Uneventful ultrasound-guided aspiration of left postsurgical fluid collection as detailed above Dictated by: Vitor Jorgensen MD 10/23/2019 09:11 Electronically signed by Vitor Jorgensen MD in [place] 10/23/2019 09:11
== END ==
PROVIDERS: PCP Nurse Practitioner Family; Visit Provider Surgery
DX: N64.89 Other specified disorders of breast; C50.912 Malignant neoplasm of unspecified site of left female breast; M96.843 Postprocedural seroma of a musculoskeletal structure following other procedure
CPT/HCPCS: 10005; 76641; 76942; 88173; 88305; 88342

== ENCOUNTER → 2019-12-07 08:12 | Outpatient (CLI) | payer MEDICARE, OTHER, SELFPAY ==
--- NOTE | 2019-12-07 | MM_ITS ---
PROCEDURE: MM DIG SC MAMM UNILAT RT CAD Digital Breast Tomosynthesis Included CLINICAL INDICATION: SCREENING, BREAST CANCER, LEFT BREAST SURGERY 02/2019 COMPARISON: MG DMDB DIG MAMM-DX JAMAAL from 05/12/2014 MG DMSB DIG MAMM-SCREEN JAMAAL from 11/22/2014 MG DMSB DIG MAMM-SCREEN JAMAAL W/CAD from 10/25/2016 MG DIG MAMM-SCREEN JAMAAL from 10/22/2018 US BREASTLT US breast LT complete from 11/12/2018 MG DIG MAMM-DX UNI-LT from 11/12/2018 MG DIG MAMM-SCREEN JAMAAL from 12/04/2018 MG MM clip placement LT from 12/04/2018 TECHNIQUE: Standard CC and MLO images and 3D Tomosynthesis was obtained. R2 CAD reviewed. FINDINGS: Prior left mastectomy. Dense fibroglandular tissue noted on the right. Cluster of calcifications once again noted in the upper outer right breast. Mag views are recommended for further evaluation. IMPRESSION: Indeterminate calcifications outer right breast. Recommend Mag views and straight mL for further evaluation BI-RAD Category: 0 Need Additional Imaging Evaluation FOLLOW-UP: IMM Immediate Follow-up Recommended (A letter has been sent to the patient regarding results of the study.) Dictated b Vitor Jorgensen MD 12/11/2019 10:05 Vitor Jorgensen MD in [place] 12/11/2019 10:05
== END ==
PROVIDERS: PCP Nurse Practitioner Family; Visit Provider Surgery
DX: Z12.31 Encounter for screening mammogram for malignant neoplasm of breast (principal)
CPT/HCPCS: 77063; 77067

== ENCOUNTER → 2020-03-25 09:27 | Outpatient (CLI) | payer MEDICARE, OTHER, SELFPAY ==
[2020-03-25 10:07] LABS: Basophils % 0.4 % (0.1-2.0); Eosinophils # 0.1 K/mm3 (0.0-0.4); Eosinophils % 1.3 % (0.1-12.0); Hematocrit 42.3 % (37.0-47.0); Hemoglobin 13.6 g/dL (12.2-16.2); Lymphocytes # 1.8 K/mm3 (0.7-4.5); Lymphocytes % 20.6 % (10-50); Mean Corpuscular HGB Conc 32.2 g/dL (31.8-35.4); Mean Corpuscular Hemoglobin 30.2 pg (27.0-31.2); Mean Corpuscular Volume 93.6 fl (81-99); Mean Platelet Volume 8.3 fl (7.4-10.4); Monocytes # 0.6 K/mm3 (0.1-1.0); Monocytes % 6.7 % (1.7-9.3); Neutrophils # 6.1 K/mm3 (1.8-7.8); Neutrophils % 70.9 % (37.0-80.0); Platelet Count 330 K/mm3 (142-424); Red Blood Count 4.51 M/mm3 (4.20-5.40); Red Cell Distribution Width 13.4 % (11.5-17.5); White Blood Count 8.6 K/mm3 (4.8-10.8)
[2020-03-25 11:10] LABS: Chloride 100 mmol/L (98-107); Potassium 4.1 mmoL/L (3.5-5.1); Sodium 138 mmol/L (136-145)
[2020-03-25 11:13] LABS: Alanine Aminotransferase 14 U/L (12-78); Albumin Level 4.1 g/dl (3.5-5.0); Albumin/Globulin Ratio 1.3 (1.1-1.8); Alkaline Phosphatase 111 U/L (38-126); Anion Gap 15.1 mEq/L (5-15); Aspartate Amino Transferase 22 U/L (14-36); Bilirubin,Total 0.4 mg/dl (0.2-1.3); Blood Urea Nitrogen 25 mg/dl (7-17); Carbon Dioxide 27 mmol/L (22.0-30.0); Estimated Glomerular Filt Rate 60 ml/min (>60); GFR (African American) 72 ML/MIN (>60); Globulin 3.2 g/dL (1.3-3.2); Total Protein,Serum 7.3 g/dl (6.3-8.2)
[2020-03-25 11:14] LABS: Calcium 9.9 mg/dl (8.4-10.2); Glucose 110 mg/dl (74-100)
== END ==
PROVIDERS: Visit Provider Internal Medicine Medical Oncology
DX: C50.912 Malignant neoplasm of unspecified site of left female breast (principal); Z17.0 Estrogen receptor positive status [ER+]
CPT/HCPCS: 36415; 80053; 85025

== ENCOUNTER → 2020-04-12 13:21 | Outpatient (CLI) | payer MEDICARE, OTHER, SELFPAY ==
--- NOTE | 2020-04-12 13:24 | MM_ITS ---
PROCEDURE: MM DIG MAMM DX UNILAT RT CAD Digital Breast Tomosynthesis Included CLINICAL INDICATION: ABN MAMM Follow-up abnormal mammogram COMPARISON: MG DMSB DIG MAMM-SCREEN JAMAAL W/CAD from 10/25/2016 MG DIG MAMM-SCREEN JAMAAL from 12/04/2018 MG MM clip placement LT from 12/04/2018 MG MM DIG SC MAMM UNILAT RT CAD from 12/07/2019 US US BREAST LT COMPLETE from 04/12/2020 TECHNIQUE: Standard CC and MLO images and 3D Tomosynthesis was obtained. R2 CAD reviewed. FINDINGS: Average to dense fibroglandular tissue. Mag views confirm increasing suspicious amorphous calcifications in the lateral aspect of the right breast. Stereotactic biopsy suggested. IMPRESSION: BI-RAD Category: 4 Suspicious Abnormality - Biopsy Considered FOLLOW-UP: BIO Biopsy Recommended (A letter has been sent to the patient regarding results of the study.) Dictated by: Vitor Jorgensen MD 04/15/2020 11:41 Vtior Jorgensen MD in [place] 04/15/2020 11:41
--- NOTE | 2020-04-12 13:25 | US_ITS ---
PROCEDURE: US BREAST LT COMPLETE CLINICAL INDICATION: Oth abn and inconclusive findings on dx imaging of breast COMPARISON: US US FNA BREAST from 10/07/2019 FINDINGS: Ultrasound was performed of the left chest wall. The patient has had a prior mastectomy. A recurrence fluid collection is present corresponding to the palpable abnormality in the left axillary region measuring 3.4 x 2 cm and may represent a postsurgical seroma. This area was aspirated previously on 10/07/2019. A 2 cm node is also present in the left axillary region. IMPRESSION: Recurrence fluid collection in the left axillary region consistent with seroma. Dictated by: Vitor Jorgensen MD 04/15/2020 11:44 Vitor Jorgensen MD in [place] 04/15/2020 11:44
== END ==
PROVIDERS: PCP Nurse Practitioner Family; Visit Provider Surgery
DX: R92.8 Other abnormal and inconclusive findings on diagnostic imaging of breast (principal)
CPT/HCPCS: 76641; 77061; 77065; G0279

== ENCOUNTER → 2020-05-11 09:21 | Outpatient (CLI) | payer MEDICARE, OTHER, SELFPAY ==
--- NOTE | 2020-05-11 09:32 | MM_ITS ---
PROCEDURE: MM STEREOTACTIC LOC RT CLINICAL INDICATION: RT BREAST SUSPICIOUS CALCIFICATIONS TECHNIQUE: The patient was given 1 mg of Xanax, Lortab 5 mg, and analgesia and minor sedation. Informed consent was obtained for the exam and time-out procedure performed. The patient was placed on the stereotactic table and the abnormality was localized in the most appropriate projection. The breast was prepped in the routine manner, with sterile prep and the overlying skin anesthetized. A 3 to 4 mm skin incision was performed and the 9 gauge sorus vacuum-assisted core biopsy needle was advanced to the region of the calcification. Pre- and post fire images were obtained. After adequate positioning relative to the calcifications was ensured, multiple biopsies were obtained in the region of the calcifications specifically. The core biopsies obtained were sent for specimen mammography. After the calcifications were indeed identified on the specimen mammogram, the procedure was terminated. The patient tolerated the procedure well without complications. Specimen was sent for pathologic analysis . A tiny titanium nonferromagnetic MicroMark was positioned through the mammotome needle into the biopsy site. Pathology: Fibroadenoma, hyalinized with calcification. Negative for atypia or malignancy. IMPRESSION: 1. Successful stereotactic vacuum-assisted core biopsy of the breast calcifications. 2. Successful placement of a titanium metal MicroMark. 3. Pathologic analysis should be forthcoming within 3 working days. 4. No noted complications. SPECIMEN RADIOGRAPH: The mammographically evident calcifications from the prior study are currently evident within the Agus dish and within the specimens obtained during mammotome procedure. This is considered an adequate specimen and the procedure was terminated. IMPRESSION: Successful removal of described breast calcifications. Right BREAST MAMMOGRAM: Numerous calcifications have been removed. The clip is not at identified on the mL 0 view likely due to patient positioning but appears to be in satisfactory position on the CC view. Suggest patient return at her lesion or for repeat MLO view to identify the clip. . 5. Adequate placement of the MicroMark clip postbiopsy on the CC view. Clip not identified on the MLO view. Recommend patient return at her lesion are for repeat MLO at no additional charge to identify the clip.. 6. Postbiopsy changes within the breast. Dictated by: Vitor Jorgensen MD 05/20/2020 10:32 Vitor Jorgensen MD in [place] 05/20/2020 10:32
== END ==
PROVIDERS: PCP Nurse Practitioner Family; Visit Provider Surgery
DX: C50.912 Malignant neoplasm of unspecified site of left female breast (principal); Z17.0 Estrogen receptor positive status [ER+]; R92.8 Other abnormal and inconclusive findings on diagnostic imaging of breast
CPT/HCPCS: 19081; 76098; 77065; 88305; 88342

== ENCOUNTER → 2020-05-25 14:20 | Outpatient (CLI) | payer MEDICARE, OTHER, SELFPAY ==
--- NOTE | 2020-05-25 14:25 | MM_ITS ---
PROCEDURE: REPEAT VIEW MM Digital Breast Tomosynthesis Included CLINICAL INDICATION: Follow-up stereotactic breast biopsy COMPARISON: MG MM DIG MAMM DX UNILAT RT CAD from 04/12/2020 MG MM CLIP PLACEMENT RT from 05/11/2020 TECHNIQUE: Repeat right MLO view to demonstrate the clip FINDINGS: The previous post biopsy exam did not demonstrate the clip on the MLO view. The patient was asked to come back at her lesion or with a repeat exam showing the clip in place in the inferior and outer aspect of the right breast with the previously described calcifications having been removed. Pathology demonstrated fibroadenoma. Recommend six-month follow-up per routine post biopsy protocol. IMPRESSION: BI-RAD Category: 2 Benign Finding(s) FOLLOW-UP: 6M 6Month Follow-up (A letter has been sent to the patient regarding results of the study.) Dictated by: Vitor Jorgensen MD 06/17/2020 12:29 Vitor Jorgensen MD in [place] 06/17/2020 12:29
== END ==
PROVIDERS: PCP Nurse Practitioner Family; Visit Provider Surgery
DX: C50.911 Malignant neoplasm of unspecified site of right female breast (principal)

== ENCOUNTER → 2020-09-22 10:45 | Outpatient (CLI) | payer MEDICARE, OTHER, SELFPAY ==
[2020-09-22 11:06] LABS: Basophils % 0.6 % (0.1-2.0); Eosinophils # 0.1 K/mm3 (0.0-0.4); Eosinophils % 1.9 % (0.1-12.0); Hematocrit 40.8 % (37.0-47.0); Hemoglobin 13.1 g/dL (12.2-16.2); Lymphocytes % 27.3 % (10-50); Mean Corpuscular HGB Conc 32.1 g/dL (31.8-35.4); Mean Corpuscular Hemoglobin 29.3 pg (27.0-31.2); Mean Corpuscular Volume 91.1 fl (81-99); Mean Platelet Volume 7.7 fl (7.4-10.4); Monocytes # 0.6 K/mm3 (0.1-1.0); Monocytes % 8.7 % (1.7-9.3); Neutrophils # 4.5 K/mm3 (1.8-7.8); Neutrophils % 61.4 % (37.0-80.0); Platelet Count 321 K/mm3 (142-424); Red Blood Count 4.48 M/mm3 (4.20-5.40); Red Cell Distribution Width 13.1 % (11.5-17.5); White Blood Count 7.3 K/mm3 (4.8-10.8)
[2020-09-22 11:21] LABS: Chloride 96 mmol/L (98-107); Potassium 4.3 mmoL/L (3.5-5.1); Sodium 133 mmol/L (136-145)
[2020-09-22 11:24] LABS: Alanine Aminotransferase 13 U/L (12-78); Albumin Level 4.2 g/dl (3.5-5.0); Albumin/Globulin Ratio 1.4 (1.1-1.8); Alkaline Phosphatase 107 U/L (38-126); Anion Gap 16.3 mEq/L (5-15); Aspartate Amino Transferase 20 U/L (14-36); Bilirubin,Total 0.4 mg/dl (0.2-1.3); Blood Urea Nitrogen 30 mg/dl (7-17); Calcium 9.9 mg/dl (8.4-10.2); Carbon Dioxide 25 mmol/L (22.0-30.0); Estimated Glomerular Filt Rate 60 ml/min (>60); GFR (African American) 72 ML/MIN (>60); Globulin 3.1 g/dL (1.3-3.2); Glucose 120 mg/dl (74-100); Total Protein,Serum 7.3 g/dl (6.3-8.2)
== END ==
PROVIDERS: Visit Provider Internal Medicine Medical Oncology
DX: C50.919 Malignant neoplasm of unspecified site of unspecified female breast (principal)
CPT/HCPCS: 36415; 80053; 85025

== ENCOUNTER → 2021-03-21 13:06 | Outpatient (CLI) | payer MEDICARE, OTHER, SELFPAY ==
--- NOTE | 2021-03-21 13:07 | US_ITS ---
PROCEDURE: US BREAST LT COMPLETE CLINICAL INDICATION: fluid pocket COMPARISON: US US BREAST LT COMPLETE from 04/12/2020 FINDINGS: Ultrasound performed of the palpable abnormality in left breast just inferior to the axilla and lateral to the breast. This corresponds to a 2.5 x 2 by 2.6 cm complex cystic lesion. Cyst wall however has a slightly thickened appearance measuring up to 3 mm in thickness and there are internal septations within the lesion. This could represent a complicated seroma, abscess, or even a large necrotic lymph node. IMPRESSION: Complex 2.6 cm cystic lesion in the lateral left breast corresponding to the palpable abnormality which could represent a complicated seroma, abscess, or even necrotic lymph node. Dictated by: Vitor Jorgensen MD 03/27/2021 08:40 Vitor Jorgensen MD in [place] 03/27/2021 08:40
--- NOTE | 2021-03-21 13:07 | MM_ITS ---
PROCEDURE INFORMATION: Exam: MG Bilateral Screening 3D Mammography Exam date and time: 03/21/2021 1:07 PM Age: 85 years old Clinical indication: Screening exam; personal history of left breast carcinoma treated with mastectomy and radiation. TECHNIQUE: Imaging protocol: Bilateral screening tomosynthesis and 2D mammography including computer-aided detection (CAD) when performed. COMPARISON: 1. MG MM CLIP PLACEMENT RT 05/11/2020 11:20 AM 2. MG DIG MAMM-SCREEN JAMAAL 10/22/2018 9:31 AM FINDINGS: MAMMOGRAPHY: Breast composition: The right breast is heterogeneously dense, which may obscure small masses. Mass: No suspicious masses. Architectural distortion: No suspicious distortion. Calcifications: No suspicious calcifications. Asymmetric density: None. Skin thickening: None. Axillary adenopathy: None. IMPRESSION: No mammographic evidence of malignancy. Annual screening is recommended unless otherwise clinically indicated. ASSESSMENT: BI-RADS Category 1: Negative
== END ==
PROVIDERS: PCP Nurse Practitioner Family; Visit Provider Surgery
DX: Z12.31 Encounter for screening mammogram for malignant neoplasm of breast (principal); Z85.3 Personal history of malignant neoplasm of breast; C50.912 Malignant neoplasm of unspecified site of left female breast
CPT/HCPCS: 76641; 77063; 77067

== ENCOUNTER → 2021-04-13 13:26 | Outpatient (CLI) | payer MEDICARE, OTHER, SELFPAY ==
[2021-04-13 14:28] LABS: Basophils # 0.1 K/mm3 (0-0.2); Basophils % 0.8 % (0.1-2.0); Eosinophils # 0.2 K/mm3 (0.0-0.4); Eosinophils % 2.4 % (0.1-12.0); Hemoglobin 12.9 g/dL (12.2-16.2); Lymphocytes # 2.3 K/mm3 (0.7-4.5); Lymphocytes % 26.2 % (10-50); Mean Corpuscular HGB Conc 33.9 g/dL (31.8-35.4); Mean Corpuscular Hemoglobin 30.4 pg (27.0-31.2); Mean Corpuscular Volume 89.9 fl (81-99); Mean Platelet Volume 8.3 fl (7.4-10.4); Monocytes # 0.7 K/mm3 (0.1-1.0); Monocytes % 8.2 % (1.7-9.3); Neutrophils # 5.4 K/mm3 (1.8-7.8); Neutrophils % 62.3 % (37.0-80.0); Platelet Count 409 K/mm3 (142-424); Red Blood Count 4.22 M/mm3 (4.20-5.40); Red Cell Distribution Width 13.2 % (11.5-17.5); White Blood Count 8.7 K/mm3 (4.8-10.8)
[2021-04-13 14:33] LABS: Alanine Aminotransferase 13 U/L (12-78); Albumin Level 3.9 g/dl (3.5-5.0); Albumin/Globulin Ratio 1.2 (1.1-1.8); Alkaline Phosphatase 118 U/L (38-126); Anion Gap 11.4 mEq/L (5-15); Aspartate Amino Transferase 20 U/L (14-36); Bilirubin,Total 0.3 mg/dl (0.2-1.3); Blood Urea Nitrogen 19 mg/dl (7-17); Calcium 9.7 mg/dl (8.4-10.2); Carbon Dioxide 31 mmol/L (22.0-30.0); Chloride 91 mmol/L (98-107); Estimated Glomerular Filt Rate 68 ml/min (>60); GFR (African American) 83 ML/MIN (>60); Globulin 3.2 g/dL (1.3-3.2); Glucose 111 mg/dl (74-100); Potassium 4.4 mmoL/L (3.5-5.1); Sodium 129 mmol/L (136-145); Total Protein,Serum 7.1 g/dl (6.3-8.2)
== END ==
PROVIDERS: Visit Provider Internal Medicine Medical Oncology
DX: C50.912 Malignant neoplasm of unspecified site of left female breast (principal)
CPT/HCPCS: 36415; 80053; 85025

== ENCOUNTER → 2021-10-16 09:18 | Outpatient (CLI) | payer MEDICARE, OTHER, SELFPAY ==
[2021-10-16 10:18] LABS: Basophils # 0.1 K/mm3 (0-0.2); Basophils % 0.7 % (0.1-2.0); Eosinophils # 0.2 K/mm3 (0.0-0.4); Eosinophils % 2.5 % (0.1-12.0); Hemoglobin 13.6 g/dL (12.2-16.2); Lymphocytes # 1.6 K/mm3 (0.7-4.5); Lymphocytes % 24.7 % (10-50); Mean Corpuscular HGB Conc 33.2 g/dL (31.8-35.4); Mean Corpuscular Hemoglobin 29.5 pg (27.0-31.2); Mean Corpuscular Volume 88.8 fl (81-99); Mean Platelet Volume 7.7 fl (7.4-10.4); Monocytes # 0.5 K/mm3 (0.1-1.0); Platelet Count 347 K/mm3 (142-424); Red Blood Count 4.62 M/mm3 (4.20-5.40); Red Cell Distribution Width 12.9 % (11.5-17.5); White Blood Count 6.3 K/mm3 (4.8-10.8)
[2021-10-16 10:41] LABS: Chloride 95 mmol/L (98-107); Potassium 4.2 mmoL/L (3.5-5.1); Sodium 133 mmol/L (136-145)
[2021-10-16 10:44] LABS: Alanine Aminotransferase 19 U/L (12-78); Albumin Level 4.1 g/dl (3.5-5.0); Albumin/Globulin Ratio 1.3 (1.1-1.8); Alkaline Phosphatase 110 U/L (38-126); Anion Gap 16.2 mEq/L (5-15); Aspartate Amino Transferase 25 U/L (14-36); Bilirubin,Total 0.3 mg/dl (0.2-1.3); Blood Urea Nitrogen 31 mg/dl (7-17); Carbon Dioxide 26 mmol/L (22.0-30.0); Estimated Glomerular Filt Rate 60 ml/min (>60); GFR (African American) 72 ML/MIN (>60); Globulin 3.2 g/dL (1.3-3.2); Total Protein,Serum 7.3 g/dl (6.3-8.2)
[2021-10-16 10:45] LABS: Calcium 9.7 mg/dl (8.4-10.2); Glucose 191 mg/dl (74-100)
== END ==
PROVIDERS: PCP Nurse Practitioner Family; Visit Provider Internal Medicine Medical Oncology
DX: C50.912 Malignant neoplasm of unspecified site of left female breast (principal)
CPT/HCPCS: 36415; 80053; 85025

== ENCOUNTER → 2022-03-21 13:17 | Outpatient (CLI) | payer MEDICARE, OTHER, SELFPAY ==
--- NOTE | 2022-03-21 13:23 | MM_ITS ---
PROCEDURE INFORMATION: Exam: MG Right Screening 3D Mammography Exam date and time: 03/21/2022 1:18 PM Age: 86 years old Clinical indication: Screening. Personal history of left breast cancer, status post left mastectomy and radiation therapy. TECHNIQUE: Imaging protocol: Right Screening tomosynthesis and 2D mammography including computer-aided detection (CAD) when performed. COMPARISON: 1. MG MM DIG SC MAMM UNILAT RT CAD 03/21/2021 1:26 PM 2. MG MM CLIP PLACEMENT RT 05/11/2020 11:20 AM 3. MG DIG MAMM-SCREEN JAMAAL 10/22/2018 9:31 AM FINDINGS: MAMMOGRAPHY: Breast composition: The breasts are heterogeneously dense, which may obscure small masses. Mass: None. Architectural distortion: None. Calcifications: No suspicious calcifications. Asymmetric density: None. Skin thickening: None. Axillary adenopathy: None. Other: Right biopsy clips. IMPRESSION: No mammographic evidence of malignancy. Annual screening is recommended unless otherwise clinically indicated. ASSESSMENT: BI-RADS Category 2: Benign
== END ==
PROVIDERS: PCP Emergency Medicine; Visit Provider Surgery
DX: Z12.31 Encounter for screening mammogram for malignant neoplasm of breast (principal)
CPT/HCPCS: 77063; 77067

== ENCOUNTER → 2022-04-17 12:15 | Outpatient (CLI) | payer MEDICARE, OTHER, SELFPAY ==
[2022-04-17 12:44] LABS: Basophils # 0.1 K/mm3 (0-0.2); Basophils % 0.4 % (0.1-2.0); Eosinophils # 0.2 K/mm3 (0.0-0.4); Eosinophils % 1.7 % (0.1-12.0); Hematocrit 39.9 % (37.0-47.0); Hemoglobin 12.7 g/dL (12.2-16.2); Lymphocytes # 1.1 K/mm3 (0.7-4.5); Mean Corpuscular HGB Conc 31.7 g/dL (31.8-35.4); Mean Corpuscular Hemoglobin 29.6 pg (27.0-31.2); Mean Corpuscular Volume 93.5 fl (81-99); Monocytes # 0.5 K/mm3 (0.1-1.0); Monocytes % 4.4 % (1.7-9.3); Neutrophils # 10.1 K/mm3 (1.8-7.8); Neutrophils % 84.5 % (37.0-80.0); Platelet Count 374 K/mm3 (142-424); Red Blood Count 4.27 M/mm3 (4.20-5.40); Red Cell Distribution Width 13.7 % (11.5-17.5); White Blood Count 11.9 K/mm3 (4.8-10.8)
[2022-04-17 13:48] LABS: Chloride 93 mmol/L (98-107); Potassium 4.3 mmoL/L (3.5-5.1); Sodium 130 mmol/L (136-145)
[2022-04-17 13:50] LABS: Alanine Aminotransferase 20 U/L (12-78); Aspartate Amino Transferase 25 U/L (14-36); Blood Urea Nitrogen 21 mg/dl (7-17); Estimated Glomerular Filt Rate 68 ml/min (>60); GFR (African American) 82 ML/MIN (>60)
[2022-04-17 13:51] LABS: Albumin Level 3.7 g/dl (3.5-5.0); Albumin/Globulin Ratio 1.2 (1.1-1.8); Alkaline Phosphatase 136 U/L (38-126); Anion Gap 16.3 mEq/L (5-15); Bilirubin,Total 0.4 mg/dl (0.2-1.3); Calcium 9.6 mg/dl (8.4-10.2); Carbon Dioxide 25 mmol/L (22.0-30.0); Glucose 195 mg/dl (74-100); Total Protein,Serum 6.7 g/dl (6.3-8.2)
== END ==
PROVIDERS: PCP Emergency Medicine; Visit Provider Internal Medicine Medical Oncology
DX: C50.912 Malignant neoplasm of unspecified site of left female breast (principal); Z17.0 Estrogen receptor positive status [ER+]
CPT/HCPCS: 36415; 80053; 85025

== ENCOUNTER → 2023-04-08 15:06 | Outpatient (CLI) | payer MEDICARE, OTHER, SELFPAY ==
--- NOTE | 2023-04-08 15:07 | MM_ITS ---
PROCEDURE INFORMATION: Exam: MG Right Screening 3D Mammography Exam date and time: 04/08/2023 3:06 PM Age: 87 years old Clinical indication: Screening mammogram. Left mastectomy and radiation therapy for carcinoma TECHNIQUE: Imaging protocol: Right Screening tomosynthesis and 2D mammography including computer-aided detection (CAD) when performed. COMPARISON: 1. MG MM DIG SC MAMM UNILAT RT CAD 03/21/2022 1:18 PM 2. MG MM DIG SC MAMM UNILAT RT CAD 03/21/2021 1:26 PM 3. MG REPEAT VIEW MM 05/25/2020 2:54 PM 4. MG MM CLIP PLACEMENT RT 05/11/2020 11:20 AM FINDINGS: MAMMOGRAPHY: Breast composition: The breast is heterogeneously dense, which may obscure small masses. Mass: None. Architectural distortion: No new or suspicious architectural distortion. Calcifications: Stable benign-appearing calcifications are present. No new or suspicious cluster of microcalcifications have developed. Asymmetric density: No new or suspicious asymmetric density is present Skin thickening: None. Axillary adenopathy: None. IMPRESSION: No mammographic evidence of malignancy. Recommend annual screening mammography unless otherwise clinically indicated. ASSESSMENT: BI-RADS category 2: Benign
== END ==
PROVIDERS: PCP Emergency Medicine; Visit Provider Surgery
DX: C50.912 Malignant neoplasm of unspecified site of left female breast; Z12.31 Encounter for screening mammogram for malignant neoplasm of breast
CPT/HCPCS: 77063; 77067

== ENCOUNTER 2023-09-11 10:27 | Outpatient (CLI) | payer MEDICARE, OTHER, SELFPAY ==
[2023-09-11 19:28] LABS: Basophils % 0.5 % (0.1-2.0); Eosinophils # 0.2 K/mm3 (0.0-0.4); Eosinophils % 1.8 % (0.1-12.0); Hemoglobin 12.9 g/dL (12.2-16.2); Lymphocytes # 1.2 K/mm3 (0.7-4.5); Lymphocytes % 14.6 % (10-50); Mean Corpuscular HGB Conc 32.3 g/dL (31.8-35.4); Mean Corpuscular Hemoglobin 30.4 pg (27.0-31.2); Mean Corpuscular Volume 94.3 fl (81-99); Mean Platelet Volume 9.4 fl (7.4-10.4); Monocytes # 0.6 K/mm3 (0.1-1.0); Neutrophils # 6.4 K/mm3 (1.8-7.8); Neutrophils % 76.1 % (37.0-80.0); Platelet Count 425 K/mm3 (142-424); Red Blood Count 4.24 M/mm3 (4.20-5.40); Red Cell Distribution Width 14.8 % (11.5-17.5); White Blood Count 8.5 K/mm3 (4.8-10.8)
[2023-09-11 20:05] LABS: Chloride 91 mmol/L (98-107); Sodium 131 mmol/L (136-145)
[2023-09-11 20:07] LABS: Alanine Aminotransferase 18 U/L (12-78); Aspartate Amino Transferase 23 U/L (14-36); Blood Urea Nitrogen 23 mg/dl (7-17); Estimated Glomerular Filt Rate 52 ml/min (>60); GFR (African American) 63 ML/MIN (>60)
[2023-09-11 20:08] LABS: Albumin Level 3.8 g/dl (3.5-5.0); Albumin/Globulin Ratio 1.2 (1.1-1.8); Alkaline Phosphatase 137 U/L (38-126); Bilirubin,Total 0.7 mg/dl (0.2-1.3); Calcium 9.7 mg/dl (8.4-10.2); Carbon Dioxide 26 mmol/L (22.0-30.0); Chol/HDL Ratio 4.9 (1-3.5); Cholesterol 180 mg/dl (140-200); Globulin 3.2 g/dL (1.3-3.2); Glucose 197 mg/dl (74-100); HDL Cholesterol 37 mg/dl (40-60); Triglycerides 107 mg/dl (30-150); VLDL Cholesterol 21 mg/dL (0-40)
[2023-09-11 20:18] LABS: NT Pro Brain Natriuretic Pep. 262 pg/mL (0-450)
[2023-09-11 20:19] LABS: Direct LDL Cholesterol 122.87 mg/dL (100-129)
[2023-09-11 20:43] LABS: Hemoglobin A1C 9.6 % (4.0-6.0)
== END 2023-09-11 23:59 | disposition home or self-care (01) ==
LOC: LAB.DROPOF 09-13 10:28
PROVIDERS: PCP Family Medicine; Visit Provider Family Medicine
DX: I10 Essential (primary) hypertension (principal); I50.9 Heart failure, unspecified; R73.03 Prediabetes; R53.83 Other fatigue; E87.70 Fluid overload, unspecified; R06.09 Other forms of dyspnea
CPT/HCPCS: 80053; 80061; 83036; 83880; 84443; 85025

== ENCOUNTER 2023-09-23 12:05 | Outpatient (CLI) | payer MEDICARE, OTHER, SELFPAY ==
[2023-09-23 22:23] LABS: Alanine Aminotransferase 16 U/L (12-78); Albumin Level 3.6 g/dl (3.5-5.0); Albumin/Globulin Ratio 1.1 (1.1-1.8); Alkaline Phosphatase 125 U/L (38-126); Aspartate Amino Transferase 22 U/L (14-36); Bilirubin,Total 0.4 mg/dl (0.2-1.3); Calcium 9.3 mg/dl (8.4-10.2); Chloride 90 mmol/L (98-107); Globulin 3.3 g/dL (1.3-3.2); Glucose 198 mg/dl (74-100); Potassium 4.5 mmoL/L (3.5-5.1); Sodium 132 mmol/L (136-145); Total Protein,Serum 6.9 g/dl (6.3-8.2)
[2023-09-23 22:24] LABS: Anion Gap 16.5 mEq/L (5-15); Blood Urea Nitrogen 18 mg/dl (7-17); Carbon Dioxide 30 mmol/L (22.0-30.0); Estimated Glomerular Filt Rate 59 ml/min (>60); GFR (African American) 72 ML/MIN (>60)
== END 2023-09-23 23:59 | disposition home or self-care (01) ==
LOC: LAB.DROPOF 09-24 12:06
PROVIDERS: Visit Provider Family Medicine
DX: I50.9 Heart failure, unspecified (principal)
CPT/HCPCS: 80053

== ENCOUNTER 2023-09-25 08:56 | Outpatient (CLI) | payer MEDICARE, OTHER, SELFPAY ==
--- NOTE | 2023-09-25 08:57 | CA_ITS ---
APPROVED REPORT EXAM: Comprehensive 2D, Doppler, and color-flow Echocardiogram [employer] Sales Representative: Gloria Gonzalez CRT Ht: 5 ft 4 in Wt: 233lbs BSA: 2.09 BP: 142/78 mmHg Indications: Arrhythmia, Congestive Heart Failure, Shortness of Breath, Diabetes, Hyperlipidemia, Hypertension/HDD 2D Dimensions LA Volume 67.20 mL LA Volume Index 31.40 mL/m2 (M/F) 16-34 M-Mode Dimensions RVDd 2.57 cm (0.9-2.6) LA Diam 3.09 cm (1.9-4.0) LVDd 4.64 cm (3.5-5.7) LVDs 3.21 cm (3.5-5.7) IVSd 1.87 cm (0.6-1.1) PWd 0.78 cm (0.6-1.1) EF (Teich) 58.40% FS 30.80% EDV (Teich) 99.30 mL TAPSE 1.98 (<1.7) ESV (Teich) 41.30 mL LV Diastology E Decel Time 310 (160-240 msec) E/A Ratio 0.44 MED A' 14.50 cm/s LAT A' 15.00 cm/s Aortic Valve AO Peak GR. 8.60 mmHg Mitral Valve MV A Velocity 95.0 (40-130 cm/s) E/A Ratio 0.44 Pulmonary Valve PV Peak Velocity 94.0 (50-150 cm/s) Tricuspid Valve TR P. Velocity 309.00 cm/s RAP Estimate 10.00 mmHg RVSP 48.20 mmHg Left Ventricle The left ventricle is normal size. The left ventricular systolic function is normal. The left ventricular ejection fraction is within the normal range. There is increased LV wall thickness. There is normal LV segmental wall motion. The left ventricular diastolic function is normal. LVEF is 55%. Right Ventricle The right ventricle is mildly dilated. The right ventricular systolic function is normal. Atria The left atrium size is moderately dilated. Right atrium is mildly dilated. There is no Doppler evidence of interatrial shunt. Aortic Valve The aortic valve is mildly thickened. There is no aortic valvular stenosis. No aortic regurgitation is present. Mitral Valve The mitral valve is normal in structure. No evidence of mitral valve stenosis. Mild mitral regurgitation. Tricuspid Valve The tricuspid valve leaflets are thin and pliable. Mild tricuspid regurgitation. RVSP is 30-35 mmHg. Pulmonic Valve The pulmonary valve is normal in structure. Trace pulmonic regurgitation. Great Vessels The aortic root is normal in size. The ascending aorta is normal in size. IVC is normal in size and collapses >50% with inspiration. Pericardium There is no pericardial effusion. Other Information Study Quality: Fair Conclusion Normal biventricular systolic function. Mild RV dilation. Biatrial dilation. Mild MR, mild TR. RVSP 30-35 mmHg. Electronically signed by : Loreta Carlson MD 09/25/2023 12:45:04
== END 2023-09-25 23:59 | disposition home or self-care (01) ==
LOC: RT 08:57
PROVIDERS: PCP Family Medicine; Visit Provider Family Medicine
DX: R60.9 Edema, unspecified (principal); R06.09 Other forms of dyspnea; I10 Essential (primary) hypertension; R94.31 Abnormal electrocardiogram [ECG] [EKG]
CPT/HCPCS: 93270; 93306

== ENCOUNTER 2023-10-02 12:26 | Outpatient (CLI) | payer MEDICARE, OTHER, SELFPAY ==
--- NOTE | 2023-10-02 | CA_ITS ---
APPROVED REPORT Exam: Pharmacologic Technologist: Rosaline Calloway, Ht: 5 ft 4 in Wt: 233 lbs BSA: 2.09 m2 HR: 65 bpm BP: 157/51 mmHg Rhythm: NSR, frequent PACs, PVCs, vent couplet, NS ST-T abns Medical History Medications: Levothyroxine,,,,, Metformin,,,,, HCTZ,,,,, Lasix,,,,, Lipitor,,,,, EnALAPRIL Maleate,,,,, ANASTRazole,,,,, Cardiac Risk Factors: HTN, Hyperlipidemia, Diabetes (insulin) Stress Test Details Test: LEXISCAN HR Resting HR: 70 bpm Max Heart Rate (APMHR): 133 bpm Max HR Achieved: 83 bpm Target HR (85% APMHR): 113 bpm % of APMHR: 62 Recovery HR: 69 bpm BP Resting BP: 157/51 mmHg Max BP: 172/58 mmHg Recovery BP: 153.0/62.0 mmHg ECG Resting ECG: NSR, frequent PAC, PVCs, vent couplet, NS ST-T abns Stress ECG: No significant ST changes Arrhythmia: Frequent PVCs, ventricular couplets, PACs Clinical Exercise duration: 04:00 min Highest Stage Achieved: Exercise capacity: 1.0 METs Stress ECG Conclusion During lexiscan pt experinced SOA and head discomfort. No CP noted. Ectopy: Frequent PVCs, rare ventricular couplet. Frequent PACs. No significant ST changes. Conclusion: Unremarkable lexiscan stress. Myoview images reported separately. Test Summary REST . . . . . . . Sitting REST 05:04 . . 70 . 157/ 51 . . Stage 1 01:00 . . 69 . . . . Stage 2 01:00 . . 78 . . . . Stage 3 01:00 . . 72 . 172/ 58 . . Stage 4 01:00 . . 68 . . . Stop exercise at 04:00 RECOVERY 01:00 . . 71 . 147/ 58 . . RECOVERY 02:00 . . 70 . 147/ 58 . . RECOVERY 03:00 . . 71 . 153/ 62 . . RECOVERY 03:56 . . 75 . 150/ 61 . . Electronically signed by : Loreta Carlson MD 10/08/2023 15:41:58
--- NOTE | 2023-10-02 12:27 | NM_ITS ---
APPROVED REPORT Exam: Nuclear Stress Test Indication: OBESITY, HTN, DM, FM HX, SOB, ABN EKG Patient Location: Outpatient Stress Tech: Rosaline ROY Tech:JERO Muse RT (R)(N)(M) Ht: 5 ft 4 in Wt: 220 lbs Bra Size: C HR: 70 bpm BP: 157/51 mmHg BSA: 2.04 m2 TID: 1.34 BMI: 37.7 History: OBESITY, HTN, DM, FM HX, SOB, ABN EKG PT COULD NOT LAY ON STOMACH FOR PRONE IMAGES Procedure: Patient received 0.4 mg of intravenous Lexiscan, resting heart rate 70 bpm, resting blood pressure 157/51 mmHg, with Lexiscan maximum heart rate achieved was 83 bpm which is % of the maximum predicted heart rate and blood pressure was 172/58 mmHg. With Lexiscan, patient denied any complaint of chest pain. Cardiac Stress and Resting SPECT Images: Cardiac Stress and Resting SPECT images were obtained using technetium 99m Myoview 31.9 mCi stress and 10.58 mCi at rest. The patient could not lie on her abdomen. Therefore, prone stress imaging could not be performed. This may affect the diagnostic interpretation of the study findings. Resting and stress imaging in supine positions demonstrate no evidence of focal fixed or reversible perfusion defects. There is increased transient ischemic dilatation ratio (TID 1.34), suggestive of possible multivessel disease or balanced ischemia. Gated imaging demonstrates mild reduction in global LV systolic function. LVEF is calculated at 47%. Conclusion: No evidence of focal fixed or reversible perfusion defects. There is increased transient ischemic dilatation ratio (TID 1.34), suggestive of possible multivessel disease or balanced ischemia. Gated imaging demonstrates mild reduction in global LV systolic function. LVEF is calculated at 47%. This LVEF may be inaccurate in the setting of frequent ectopy during image acquisition. Correlation with recent or new TTE is recommended. Electronically signed by : Loreta Carlson MD 10/08/2023 15:45:13
[2023-10-02] MEDS: REGADENOSON 0.4MG/5ML SYRINGE 0.400000000000000022 MG IV (14:00)
[2023-10-02] MEDS: ISOTOPE MYOVIEW (PER STUDY) 1 DOSE IV (18:37)
[2023-10-02] MEDS: SODIUM CHLORIDE 0.9% 10ML SYR (RAD ONLY) 10 ML IV (18:37)
== END 2023-10-02 23:59 | disposition home or self-care (01) ==
LOC: RAD 12:27
PROVIDERS: PCP Family Medicine; Visit Provider Family Medicine
DX: R06.09 Other forms of dyspnea; R94.31 Abnormal electrocardiogram [ECG] [EKG]; I20.89 Other forms of angina pectoris; I50.9 Heart failure, unspecified; E78.5 Hyperlipidemia, unspecified; E11.9 Type 2 diabetes mellitus without complications; I10 Essential (primary) hypertension; R60.9 Edema, unspecified; Z79.84 Long term (current) use of oral hypoglycemic drugs
CPT/HCPCS: 78452; 93017; 93018; A9502; J2785

== ENCOUNTER 2024-10-05 11:34 | Outpatient (CLI) | payer MEDICARE, OTHER, SELFPAY ==
[2024-10-05 12:30] LABS: Basophils % 0.6 % (0.1-2.0); Eosinophils # 0.1 Kmm3 (0.0-0.4); Eosinophils % 1.4 % (0.1-12.0); Immature Granulocytes # 0.04 10^3uL; Immature Granulocytes % 0.6 %; Lymphocytes % 28.9 % (10-50); Mean Corpuscular HGB Conc 33.3 g/dL (31.8-35.4); Mean Corpuscular Hemoglobin 29.4 pg (27.0-31.2); Mean Corpuscular Volume 88.2 fl (81-99); Monocytes # 0.8 K/mm3 (0.1-1.0); Monocytes % 11.4 % (1.7-9.3); Neutrophils % 57.1 % (37.0-80.0); Nucleated Red Blood Cells # 0 10^3/uL; Nucleated Red Blood Cells % 0 %; Platelet Count 306 K/mm3 (142-424); Red Blood Count 4.42 M/mm3 (4.20-5.40); Red Cell Distribution Width 13.4 % (11.5-17.5); Red Cell Distribution Width-SD 43.6 fL
[2024-10-05 13:12] LABS: Hemoglobin A1C 6.5 % (4.0-6.0)
[2024-10-05 13:25] LABS: Albumin Level 4.2 g/dl (3.5-5.0); Chloride 96 mmol/L (98-107); Sodium 130 mmol/L (136-145)
[2024-10-05 13:27] LABS: Alanine Aminotransferase 14 U/L (12-78); Aspartate Amino Transferase 20 U/L (14-36); Blood Urea Nitrogen 33 mg/dl (7-17); Carbon Dioxide 27 mmol/L (22.0-30.0); Estimated Glomerular Filt Rate 59 ml/min (>60); GFR (African American) 71 ML/MIN (>60)
[2024-10-05 13:28] LABS: Albumin/Globulin Ratio 1.3 (1.1-1.8); Alkaline Phosphatase 130 U/L (38-126); Bilirubin,Total 0.6 mg/dl (0.2-1.3); Calcium 9.8 mg/dl (8.4-10.2); Chol/HDL Ratio 3.2 (1-3.5); Cholesterol 130 mg/dl (140-200); Globulin 3.2 g/dL (1.3-3.2); Glucose 128 mg/dl (74-100); HDL Cholesterol 41 mg/dl (40-60); Total Protein,Serum 7.4 g/dl (6.3-8.2); Triglycerides 71 mg/dl (30-150); VLDL Cholesterol 14 mg/dL (0-40)
[2024-10-05 13:39] LABS: Direct LDL Cholesterol 65.62 mg/dL (100-129)
[2024-10-05 13:46] LABS: 25-OH Vitamin D, Total 41.3 ng/mL (30-100)
[2024-10-05 13:59] LABS: Thyroid Stimulating Hormone 3.86 uIU/mL (0.465-4.68)
[2024-10-05 18:54] LABS: Microalbumin/Creatinine Ratio 135.9
[2024-10-05 18:56] LABS: Creatinine,Urine Random 22 mg/dL (Not Estab.)
== END 2024-10-05 23:59 | disposition home or self-care (01) ==
LOC: LAB 11:35
PROVIDERS: PCP Family Medicine; Visit Provider Family Medicine
DX: E78.5 Hyperlipidemia, unspecified (principal); I10 Essential (primary) hypertension; E11.9 Type 2 diabetes mellitus without complications; E55.9 Vitamin D deficiency, unspecified
CPT/HCPCS: 36415; 80053; 80061; 82043; 82306; 82570; 83036; 84443; 85025

== ENCOUNTER 2025-04-15 14:58 | Outpatient (CLI) | payer MEDICARE, OTHER, SELFPAY ==
[2025-04-15 21:03] LABS: Hemoglobin A1C 6.2 % (4.0-6.0)
[2025-04-15 21:05] LABS: Albumin Level 4.3 g/dl (3.5-5.0); Chloride 91 mmol/L (98-107); Potassium 4.7 mmoL/L (3.5-5.1); Sodium 132 mmol/L (136-145)
[2025-04-15 21:08] LABS: Alanine Aminotransferase 18 U/L (12-78); Albumin/Globulin Ratio 1.3 (1.1-1.8); Alkaline Phosphatase 103 U/L (38-126); Anion Gap 19.7 mEq/L (5-15); Aspartate Amino Transferase 24 U/L (14-36); Bilirubin,Total 0.5 mg/dl (0.2-1.3); Blood Urea Nitrogen 23 mg/dl (7-17); Calcium 9.4 mg/dl (8.4-10.2); Carbon Dioxide 26 mmol/L (22.0-30.0); Creatinine,Serum 0.80 mg/dl (0.52-1.04); Estimated Glomerular Filt Rate 68 ml/min (>60); GFR (African American) 82 ML/MIN (>60); Globulin 3.4 g/dL (1.3-3.2); Glucose 135 mg/dl (74-100); Total Protein,Serum 7.7 g/dl (6.3-8.2)
== END 2025-04-15 23:59 | disposition home or self-care (01) ==
LOC: LAB.DROPOF 04-16 12:38
PROVIDERS: PCP Student in an Organized Health Care Education/Training Program; Visit Provider Family Medicine
DX: E13.9 Other specified diabetes mellitus without complications (principal); I10 Essential (primary) hypertension
CPT/HCPCS: 80053; 83036